=== PATIENT | male | born 1955 | race Caucasian/White ===

== ENCOUNTER 2017-03-01 13:38 | Emergency (ER) | payer BC | END 2017-03-01 15:54 | disposition home or self-care (01) | LOC: D.ER 13:38 | DX: S51.812A Laceration without foreign body of left forearm, initial encounter (principal); W45.8XXA Other foreign body or object entering through skin, initial encounter; Y93.89 Activity, other specified; Y92.019 Unspecified place in single-family (private) house as the place of occurrence of the external cause; E03.9 Hypothyroidism, unspecified; K58.9 Irritable bowel syndrome, unspecified; F17.200 Nicotine dependence, unspecified, uncomplicated ==

== ENCOUNTER → 2017-06-11 09:57 | Outpatient (CLI) | payer BC | END | disposition home or self-care (01) | LOC: D.RT 09:57 | DX: R06.02 Shortness of breath (principal) ==

== ENCOUNTER → 2017-08-25 10:12 | Outpatient (CLI) | payer BC | END | disposition home or self-care (01) | LOC: D.RAD 08-20 09:00 | DX: R13.10 Dysphagia, unspecified (principal) ==

== ENCOUNTER → 2019-06-29 08:30 | Outpatient (CLI) | payer MEDICARE | END | disposition home or self-care (01) | LOC: D.US 08:30 | PROVIDERS: ATTEND Hospitalist | DX: B18.1 Chronic viral hepatitis B without delta-agent (principal) ==

== ENCOUNTER 2020-08-21 10:43 | Emergency (ER) | payer MEDICARE ==
[~2020-08-21] VITALS: Ht 180.3 cm; Wt 61.4 kg
[2020-08-21 10:47] VITALS: Ht 180.3 cm; Wt 61.4 kg
[2020-08-21 11:43] LABS: CALC OSMOLALITY 277 mosm/kg (275-300); CALCIUM 8.7 mg/dL (8.5-10.1); CARBON DIOXIDE 26.8 mmol/L (21.0-32.0); CHLORIDE - SERUM 104 mmol/L (98-107); CREATININE - SERUM 0.8 mg/dL (0.6-1.3); GLUCOSE 97 mg/dL (74-106); POTASSIUM - SERUM 3.6 mmol/L (3.5-5.1); SODIUM 138 mmol/L (136-145); UREA NITROGEN 18 mg/dL (7-18); eGFR NON AFRICAN AMERICAN > 90 mL/min (90-120)
[2020-08-21 11:52] LABS: ALBUMIN 3.7 g/dL (3.4-5.0); ALKALINE PHOSPHATASE 65 U/L (30-120); ALT (SGPT) 67 U/L (10-68); AMYLASE - SERUM 36 U/L (25-115); BILIRUBIN - TOTAL 0.75 mg/dL (0.2-1.3); LIPASE 53 U/L (73-393); PROTEIN - SERUM 7.4 g/dL (6.4-8.2); TROPONIN-I < 0.017 ng/mL (0.000-0.060)
[2020-08-21 11:55] LABS: BASOPHILS 0.5 % (0-2); EOSINOPHILS 1.4 % (0-7); HEMATOCRIT 40.9 % (42.0-54.0); HEMOGLOBIN 13.8 g/dL (13.5-17.5); IMMATURE GRANULOCYTES 0.2 % (0-5); LYMPHOCYTES 37.7 % (15-50); MCH 30.6 pg (26.0-34.0); MCHC 33.7 g/dL (31.0-37.0); MCV 90.7 fL (80.0-100.0); MEAN PLATELET VOLUME 9.2 fL (7.4-10.4); MONOCYTES 9.6 % (2-11); NEUTROPHILS 50.6 % (40-80); PLATELET COUNT 202 10x3/uL (130-400); RBC 4.51 10x6/uL (4.20-6.10); RDW 13.6 % (11.5-14.5); WBC 6.2 10x3/uL (4.8-10.8)
[2020-08-21 13:04] LABS: BILIRUBIN NEGATIVE (NEGATIVE); KETONE SMALL mg/dL (NEGATIVE); NITRITE NEGATIVE (NEGATIVE)
[2020-08-21] MEDS ORDERED: PHAZYME180 MG PO (13:49)
[2020-08-21 14:00] VITALS: BP 126/77
== END 2020-08-21 14:00 | disposition home or self-care (01) ==
LOC: D.ER 10:43
PROVIDERS: Family Medicine
DX: R10.11 Right upper quadrant pain (principal); J44.9 Chronic obstructive pulmonary disease, unspecified